=== PATIENT | female | born 1940 | race African-American/Black ===

== ENCOUNTER 2025-08-15 03:13 | Inpatient (IN) | payer BC, MEDICARE ==
[~2025-08-15] VITALS: Ht 162.6 cm; Wt 100.7 kg
[2025-08-15] MEDS: LORAZEPAM 2MG/ML UD SYRINGE IV NR ×2 (03:28→05:03)
[2025-08-15 03:55] LABS: CREATININE 1.7 mg/dL (0.6-1.0); UREA NITROGEN BLOOD 27 mg/dL (9-23)
[2025-08-15 03:56] LABS: TROPONIN I HIGH SENSITIVITY 27 ng/L (3.0-34)
[2025-08-15 03:57] LABS: ASPARTATE AMINOTRANSFERASE 14 IU/L (<34); BILIRUBIN DIRECT 0.2 mg/dL (<=3.0); INR 1.1
[2025-08-15 03:58] LABS: BILIRUBIN TOTAL 0.5 mg/dL (0.1-1.0); PROTEIN TOTAL 7.8 g/dL (6.0-8.3)
[2025-08-15 04:01] LABS: BASOPHILS % 0.9 % (0.0-2.0); EOSINOPHILS % 1.1 % (0.0-5.0); HEMATOCRIT. 50.9 % (36.0-48.0); HEMOGLOBIN. 15.5 g/dL (12.0-16.0); LYMPHOCYTES % 22.3 % (20.0-50.0); MEAN PLATELET VOLUME 11.3 fl (7.4-10.4); MONOCYTES % 8.0 % (2.0-8.0); NEUTROPHILS % 67.7 % (40.0-76.0); PLATELET 170 x1000/uL (130-400); RED BLOOD CELL COUNT 5.74 mill/uL (4.2-5.4); RED CELL DISTRIBUTION WIDTH 16.4 % (11.6-14.6)
[2025-08-15 04:18] LABS: BG BASE EXCESS 0.7 mmol/L (-2.0-3.0); BG CARBOXYHEMOGLOBIN 1.5 % (0.5-1.5); BG DEOXYHEMOGLOBIN 1.6 % (0.0-5.0); BG FLOW(L/min) 4.00 L/min; BG FRACTION INSPIRED OXYGEN 32; BG HCO3 ACT 26.4 mmol/L (21.0-28.0); BG METHEMOGLOBIN 0.2 % (0.5-1.5); BG OXYGEN SATURATION 98.4 % (94.0-98.0); BG OXYHEMOGLOBIN 96.7 % (94.0-98.0); BG PCO2 46.2 mmHg (32.0-45.0); BG PH 7.375 (7.350-7.450); BG PO2 124.7 mmHg (83.0-108.0); BG SAMPLE SITE RIGHT RADIAL; BG TOTAL HEMOGLOBIN 15.8 g/dL (12.0-16.0); BG VENT MODE NASAL CANNULA
[2025-08-15] MEDS: LEVETIRACETAM 1000MG PREMIX 100 ML IV ONE (05:03)
[2025-08-15 08:00] VITALS: BP 109/65; PULSE 72; RESP 16; RESP 23; TEMP 36.2; O2SAT 99
[2025-08-15] MEDS ORDERED: ACETAMINOPHEN 325MG TABLET PO PRN (10:15)
[2025-08-15] MEDS ORDERED: ONDANSETRON HCL 4MG/2ML INJ IV PRN (10:15)
[2025-08-15] MEDS ORDERED: DOCUSATE SODIUM 100MG CAPSULE PO PRN (10:15)
[2025-08-15] MEDS ORDERED: IPRATROPIUM/ALBUTEROL 0.5-3(2.5)MG/3ML NEB HHN PRN (10:15)
[2025-08-15] MEDS ORDERED: DEXTROSE 50% WATER 50ML SYRINGE IV PRN (10:15)
[2025-08-15] MEDS: PANTOPRAZOLE SODIUM 40 MG/VIAL IV SCH (10:30)
[2025-08-15] MEDS: BLOOD SUGAR DIAGNOSTIC STRIP TEST SCH (11:45)
[2025-08-15 12:00] VITALS: BP 112/54; PULSE 68; RESP 16; TEMP 35.9; O2SAT 98
[2025-08-15] MEDS: INSULIN LISPRO 100 UNITS/ML SUBCUT SCH (12:15)
[2025-08-15 16:00] VITALS: BP 137/62; PULSE 73; RESP 16; TEMP 36.2; O2SAT 97
[2025-08-15] MEDS ORDERED: EMPA25TA MT (16:08)
[2025-08-15] MEDS ORDERED: DORZ10DR9 EACHEYE (16:08)
[2025-08-15] MEDS ORDERED: ATOR20TA65 PO (16:08)
[2025-08-15] MEDS ORDERED: FURO-151 PO (16:08)
[2025-08-15] MEDS ORDERED: ALBU18HF2 IH (16:08)
[2025-08-15] MEDS ORDERED: APIX2.5T MT (16:08)
[2025-08-15] MEDS ORDERED: OMEP20CA14 PO (16:08)
[2025-08-15] MEDS ORDERED: LEVO112T7 PO (16:08)
[2025-08-15] MEDS ORDERED: DILT120C11 MT (16:08)
[2025-08-15] MEDS ORDERED: BRIM15DR8 EACHEYE (16:08)
[2025-08-15] MEDS ORDERED: FURO100P5 IV (16:08)
[2025-08-15] MEDS: LEVOTHYROXINE SODIUM 112MCG TABLET PO SCH (16:45)
[2025-08-15] MEDS: DEXAMETHASONE 4MG/ML 1ML VIAL IV SCH (18:00)
[2025-08-15 18:43] VITALS: BP 137/62; PULSE 61; RESP 20; TEMP 36.2512
[2025-08-15] MEDS ORDERED: FLUT1BLS3 INH (18:58)
[2025-08-15] MEDS ORDERED: LATA2.5D7 EACHEYE (18:58)
[2025-08-15 20:00] VITALS: BP 115/83; PULSE 75; RESP 16; TEMP 36; O2SAT 96
[2025-08-15] MEDS ORDERED: LEVETIRACETAM 500MG in NACL 100ML PREMIX IV SCH (21:00)
[2025-08-15] MEDS ORDERED: LEVETIRACETAM 1000MG PREMIX 100 ML IV SCH (21:00)
[2025-08-15] MEDS: LEVETIRACETAM 500MG PREMIX 100 ML IV SCH (23:41)
[2025-08-16] VITALS (9 sets, daily range): BP systolic 108–154; BP diastolic 52–81; PULSE 77–97; RESP 16–20; TEMP 36.3–36.8; O2SAT 96–98
[2025-08-16] MEDS: IPRATROPIUM/ALBUTEROL 0.5-3(2.5)MG/3ML NEB HHN SCH (00:20)
[2025-08-16 06:32] LABS: BASOPHILS % 0.2 % (0.0-2.0); EOSINOPHILS % 0.0 % (0.0-5.0); HEMATOCRIT. 53.6 % (36.0-48.0); HEMOGLOBIN. 16.2 g/dL (12.0-16.0); LYMPHOCYTES % 9.5 % (20.0-50.0); MEAN PLATELET VOLUME 11.4 fl (7.4-10.4); MONOCYTES % 0.7 % (2.0-8.0); NEUTROPHILS % 89.6 % (40.0-76.0); PLATELET 98 x1000/uL (130-400); RED BLOOD CELL COUNT 5.94 mill/uL (4.2-5.4); RED CELL DISTRIBUTION WIDTH 16.2 % (11.6-14.6)
[2025-08-16 06:45] LABS: TRIGLYCERIDE 101.0 mg/dL (0-150)
[2025-08-16 06:46] LABS: LDL CHOLESTEROL 69.0 mg/dL (5-100)
[2025-08-16 06:48] LABS: CREATININE 1.2 mg/dL (0.6-1.0); UREA NITROGEN BLOOD 18.0 mg/dL (9-23)
[2025-08-16 06:53] LABS: T4 FREE 1.51 ng/dL (0.89-1.76)
[2025-08-16] MEDS: DILTIAZEM HCL 30MG TABLET PO SCH (12:00)
[2025-08-16] MEDS: DORZOLAM/TIMOLOL 2%/0.5% OPHTH DROPS 10ML EACHEYE SCH (21:22)
[2025-08-16] MEDS: LATANOPROST 0.005% OPHTH DROPS 2.5ML EACHEYE SCH (21:22)
[2025-08-16] MEDS: ATORVASTATIN CALCIUM 20MG TABLET PO SCH (21:23)
[2025-08-17] VITALS (8 sets, daily range): BP systolic 115–155; BP diastolic 64–93; PULSE 72–87; RESP 16–18; TEMP 35.9–36.6; O2SAT 92–97
[2025-08-17 06:27] LABS: CREATININE 1.1 mg/dL (0.6-1.0)
[2025-08-17 06:28] LABS: UREA NITROGEN BLOOD 18.0 mg/dL (9-23)
[2025-08-17 06:47] LABS: BASOPHILS % 0.1 % (0.0-2.0); EOSINOPHILS % 0.1 % (0.0-5.0); HEMATOCRIT. 52.3 % (36.0-48.0); HEMOGLOBIN. 16.0 g/dL (12.0-16.0); LYMPHOCYTES % 10.1 % (20.0-50.0); MEAN PLATELET VOLUME 12.0 fl (7.4-10.4); MONOCYTES % 5.5 % (2.0-8.0); NEUTROPHILS % 84.2 % (40.0-76.0); PLATELET 129 x1000/uL (130-400); RED BLOOD CELL COUNT 5.85 mill/uL (4.2-5.4); RED CELL DISTRIBUTION WIDTH 16.2 % (11.6-14.6)
[2025-08-17 09:10] LABS: CARCINOEMBRYONIC AG - SEND OUT 2.2 ng/mL (0.0-4.7)
[2025-08-17] MEDS: CLONIDINE 0.1MG TABLET PO PRN (11:53)
[2025-08-17] MEDS ORDERED: HYDROCODONE/ACETAMINOPHEN 5/325MG TABLET PO PRN (22:26)
[2025-08-18] VITALS: BP 127/69; PULSE 70; RESP 16; TEMP 36.2; O2SAT 95
[2025-08-18 04:00] VITALS: BP 121/57; PULSE 70; RESP 16; TEMP 36.4; O2SAT 98
[2025-08-18 07:17] LABS: CREATININE 0.9 mg/dL (0.6-1.0); UREA NITROGEN BLOOD 16 mg/dL (9-23)
[2025-08-18] MEDS ORDERED: CEFTRIAXONE 250 MG in DEXTROSE 5% WATER 50 ML IV SCH (09:00)
[2025-08-18 10:09] VITALS: PULSE 63; RESP 16; O2SAT 97
[2025-08-18 10:12] LABS: CA 27.29 32.8 U/mL (0.0-38.6)
[2025-08-18 12:00] VITALS: BP 147/72; PULSE 61; RESP 18; TEMP 36.3; O2SAT 98
[2025-08-18 16:00] VITALS: BP 142/73; PULSE 67; RESP 18; TEMP 36.2; O2SAT 93
[2025-08-18 20:00] VITALS: BP 177/89; PULSE 70; RESP 17; TEMP 36.4; O2SAT 100
[2025-08-19] VITALS: BP 157/82; PULSE 71; RESP 17; TEMP 36.4; O2SAT 100
[2025-08-19 04:00] VITALS: BP 154/80; PULSE 69; RESP 20; TEMP 35.7; O2SAT 95
[2025-08-19 08:00] VITALS: BP 154/63; PULSE 69; RESP 19; TEMP 35.7; O2SAT 94
[2025-08-19 12:00] VITALS: BP 132/57; PULSE 76; RESP 17; TEMP 35.7; O2SAT 94
[2025-08-19] MEDS ORDERED: CEFEPIME 1GM IN DEXT 5% 50ML IV SCH (14:45)
[2025-08-19 16:00] VITALS: BP 117/29; PULSE 73; RESP 17; TEMP 36.1; O2SAT 95
[2025-08-19] MEDS: CEFEPIME 1GM/50ML 50 ML IV SCH (17:00)
[2025-08-19 20:00] VITALS: BP 144/75; PULSE 80; RESP 19; TEMP 36.3; O2SAT 96
[2025-08-20] VITALS: BP 129/65; PULSE 61; RESP 18; TEMP 36.8; O2SAT 99
[2025-08-20 04:00] VITALS: BP 155/79; PULSE 76; RESP 19; TEMP 36.2; O2SAT 98
[2025-08-20] MEDS ORDERED: ONDANSETRON HCL 4MG/2ML INJ ONE (07:42)
[2025-08-20] MEDS ORDERED: DEXAMETHASONE 4MG/ML 1ML VIAL ONE (07:42)
[2025-08-20] MEDS ORDERED: LIDOCAINE HCL 1% 20ML VIAL ONE (07:42)
[2025-08-20] MEDS ORDERED: PROPOFOL 200MG/20ML VIAL IV ONE (07:43)
[2025-08-20] MEDS ORDERED: FENTANYL CITRATE/PF 50MCG/ML 2ML VIAL ONE (07:43)
[2025-08-20] MEDS ORDERED: ACETAMINOPHEN 1000MG/100ML 100 ML IV ONE (07:46)
[2025-08-20] MEDS ORDERED: FAMOTIDINE 20MG/2ML VIAL IV ONE (07:46)
[2025-08-20] MEDS ORDERED: CEFAZOLIN SODIUM 1000MG/VIAL ONE (07:56)
[2025-08-20] MEDS ORDERED: PHENYLEPHRINE HCL 10MG/ML 1ML IV ONE (08:09)
[2025-08-20] MEDS ORDERED: IOHEXOL-300 100 ML BOTTLE ONE (08:42)
[2025-08-20] MEDS ORDERED: HYDROMORPHONE HCL/PF 1MG/ML INJ IV PRN (08:45)
[2025-08-20] MEDS ORDERED: LABETALOL 5MG/ML 4ML INJ IV PRN (08:45)
[2025-08-20] MEDS ORDERED: FENTANYL CITRATE/PF 50MCG/ML 2ML VIAL IV PRN (08:45)
[2025-08-20] MEDS ORDERED: ONDANSETRON HCL 4MG/2ML INJ IV PRN (08:45)
[2025-08-20] MEDS ORDERED: ALBUTEROL (0.5%) 2.5MG/0.5ML NEB HHN NR (08:45)
[2025-08-20 09:38] VITALS: PULSE 103; RESP 22; O2SAT 93
[2025-08-20] MEDS: HYDRALAZINE 20MG/ML VIAL IV PRN (10:06)
[2025-08-20 12:00] VITALS: BP 142/75; PULSE 64; RESP 19; TEMP 36.1; O2SAT 99
[2025-08-20 16:00] VITALS: BP 154/90; PULSE 92; RESP 18; TEMP 36.1; O2SAT 98
[2025-08-20 20:00] VITALS: BP_SYST 129; BP_DIAS 55; BP_DIAS 58; PULSE 95; RESP 19; TEMP 36.4; O2SAT 98
[2025-08-21] VITALS: BP 129/58; PULSE 95; RESP 19; TEMP 36.4; O2SAT 98
[2025-08-21 04:00] VITALS: PULSE 87; RESP 18; TEMP 36.4; O2SAT 97
[2025-08-21 06:24] LABS: HEMATOCRIT. 55.3 % (36.0-48.0); HEMOGLOBIN. 17.1 g/dL (12.0-16.0); MEAN PLATELET VOLUME 10.9 fl (7.4-10.4); PLATELET 99 x1000/uL (130-400); RED BLOOD CELL COUNT 6.29 mill/uL (4.2-5.4); RED CELL DISTRIBUTION WIDTH 16.0 % (11.6-14.6)
[2025-08-21 06:43] LABS: CREATININE 1.2 mg/dL (0.6-1.0); UREA NITROGEN BLOOD 30.0 mg/dL (9-23)
[2025-08-21 08:00] VITALS: BP 107/62; PULSE 79; RESP 18; TEMP 35.6; O2SAT 97
[2025-08-21 12:00] VITALS: BP 104/77; PULSE 66; RESP 17; TEMP 36.1; O2SAT 97
[2025-08-21] MEDS: SODIUM CHLORIDE 0.9% (SEPSIS BOLUS) IV ONE (12:33)
[2025-08-21 16:00] VITALS: BP 124/73; PULSE 107; RESP 20; TEMP 36.3; O2SAT 98
[2025-08-21 20:00] VITALS: BP 141/55; PULSE 105; RESP 19; TEMP 36.9; O2SAT 99
[2025-08-21 20:52] LABS: LYMPHOCYTES % MANUAL 7.0 % (20.0-60.0); MONOCYTES % MANUAL 5.0 % (2.0-8.0); NEUTROPHILS % MANUAL 88.0 % (45.0-75.0); PLATELET ESTIMATE NORMAL
[2025-08-22] VITALS: PULSE 100; RESP 18; TEMP 36.9; O2SAT 100
[2025-08-22 04:00] VITALS: BP 126/91; PULSE 87; RESP 18; TEMP 36.4; O2SAT 97
[2025-08-22 07:12] LABS: CREATININE 1.3 mg/dL (0.6-1.0); UREA NITROGEN BLOOD 30.0 mg/dL (9-23)
[2025-08-22 08:00] VITALS: BP 146/84; PULSE 65; RESP 19; TEMP 36.4; O2SAT 98
[2025-08-22] MEDS: SODIUM ZIRCONIUM CYCLOSILICATE 10GM/PACKET PO NR (08:30)
[2025-08-22] MEDS ORDERED: ALBUTEROL (0.5%) 2.5MG/0.5ML NEB HHN NR (08:30)
[2025-08-22] MEDS ORDERED: SODIUM POLYSTYRENE SULFONATE 15 G/60 ML BOT PR NR (10:45)
[2025-08-22 11:11] LABS: BASOPHILS % 0.1 % (0.0-2.0); EOSINOPHILS % 0.0 % (0.0-5.0); HEMATOCRIT. 58.0 % (36.0-48.0); HEMOGLOBIN. 17.7 g/dL (12.0-16.0); LYMPHOCYTES % 9.6 % (20.0-50.0); MEAN PLATELET VOLUME 11.2 fl (7.4-10.4); MONOCYTES % 4.2 % (2.0-8.0); NEUTROPHILS % 86.1 % (40.0-76.0); PLATELET 67 x1000/uL (130-400); RED BLOOD CELL COUNT 6.52 mill/uL (4.2-5.4); RED CELL DISTRIBUTION WIDTH 16.3 % (11.6-14.6)
[2025-08-22 12:00] VITALS: BP 155/68; PULSE 87; RESP 18; TEMP 36.6; O2SAT 100
[2025-08-22 16:00] VITALS: BP 147/63; PULSE 88; RESP 19; TEMP 36; O2SAT 98
[2025-08-22] MEDS: SODIUM CHLORIDE 0.9% 1,000 ML IV SCH (16:27)
[2025-08-22 20:00] VITALS: BP 154/78; PULSE 82; RESP 16; TEMP 36.3; O2SAT 100
[2025-08-23] VITALS (7 sets, daily range): BP systolic 135–199; BP diastolic 66–96; PULSE 63–86; RESP 17–20; TEMP 35.9–37.2; O2SAT 95–100
[2025-08-23] MEDS ORDERED: HYDRALAZINE 20MG/ML VIAL IV PRN (19:45)
[2025-08-23] MEDS: HYDRALAZINE 10 MG in SODIUM CHLORIDE 0.9% 49.5 ML IV PRN (20:30)
[2025-08-23] MEDS: DEXAMETHASONE 4MG/ML 1ML VIAL IV SCH (21:53)
[2025-08-24] VITALS: BP 144/69; PULSE 80; RESP 20; TEMP 36.5; O2SAT 98
[2025-08-24 04:00] VITALS: BP 141/66; PULSE 87; RESP 16; TEMP 37; O2SAT 99
[2025-08-24 08:00] VITALS: BP 154/82; PULSE 83; RESP 19; TEMP 36.2; O2SAT 100
[2025-08-24 09:59] LABS: BASOPHILS % 0.1 % (0.0-2.0); EOSINOPHILS % 0.0 % (0.0-5.0); HEMATOCRIT. 53.6 % (36.0-48.0); HEMOGLOBIN. 16.5 g/dL (12.0-16.0); LYMPHOCYTES % 12.0 % (20.0-50.0); MEAN PLATELET VOLUME 11.3 fl (7.4-10.4); MONOCYTES % 7.6 % (2.0-8.0); NEUTROPHILS % 80.3 % (40.0-76.0); PLATELET 64 x1000/uL (130-400); RED BLOOD CELL COUNT 6.08 mill/uL (4.2-5.4); RED CELL DISTRIBUTION WIDTH 15.8 % (11.6-14.6)
[2025-08-24 10:18] LABS: CREATININE 0.9 mg/dL (0.6-1.0); UREA NITROGEN BLOOD 26 mg/dL (9-23)
[2025-08-24 12:00] VITALS: BP 184/90; PULSE 86; RESP 18; TEMP 36.2; O2SAT 100
[2025-08-24 16:00] VITALS: BP 174/80; PULSE 86; RESP 18; TEMP 36.2; O2SAT 100
[2025-08-24 20:00] VITALS: BP 179/69; PULSE 86; RESP 18; TEMP 36.4; O2SAT 95
[2025-08-25] VITALS (8 sets, daily range): BP systolic 120–182; BP diastolic 64–96; PULSE 64–87; RESP 17–18; TEMP 35.5–36.8; O2SAT 94–100
[2025-08-25 09:47] LABS: BASOPHILS % 0.1 % (0.0-2.0); EOSINOPHILS % 0.1 % (0.0-5.0); HEMATOCRIT. 50.1 % (36.0-48.0); HEMOGLOBIN. 15.8 g/dL (12.0-16.0); LYMPHOCYTES % 10.1 % (20.0-50.0); MEAN PLATELET VOLUME 11.8 fl (7.4-10.4); MONOCYTES % 7.3 % (2.0-8.0); NEUTROPHILS % 82.4 % (40.0-76.0); PLATELET 67 x1000/uL (130-400); RED BLOOD CELL COUNT 5.69 mill/uL (4.2-5.4); RED CELL DISTRIBUTION WIDTH 16.1 % (11.6-14.6)
[2025-08-25 10:14] LABS: CREATININE 0.8 mg/dL (0.6-1.0); UREA NITROGEN BLOOD 28 mg/dL (9-23)
[2025-08-25] MEDS ORDERED: HYDRALAZINE 10 MG in SODIUM CHLORIDE 0.9% 49.5 ML IV PRN (15:00)
[2025-08-25] MEDS ORDERED: HYDRALAZINE 20MG/ML VIAL IV PRN (22:00)
[2025-08-25] MEDS: DEXT 5%/0.45% NACL 1000ML 1,000 ML IV SCH (22:20)
[2025-08-25] MEDS: HYDRALAZINE 20MG/ML VIAL IV SCH (22:20)
[2025-08-26] VITALS: BP 144/87; PULSE 86; RESP 18; TEMP 36.9; O2SAT 100
[2025-08-26 04:00] VITALS: BP 138/87; PULSE 84; RESP 18; TEMP 37; O2SAT 98
[2025-08-26 08:00] VITALS: BP 140/78; PULSE 78; RESP 20; TEMP 36; O2SAT 100
[2025-08-26 12:00] VITALS: BP 110/66; PULSE 76; RESP 20; TEMP 36.1; O2SAT 99
[2025-08-26] MEDS: CLONIDINE 0.2MG TABLET PO NR (12:56)
[2025-08-26 16:00] VITALS: BP 150/88; PULSE 66; RESP 18; TEMP 36.3; O2SAT 98
[2025-08-26] MEDS: BISACODYL 10MG SUPP PR NR (17:24)
[2025-08-26 20:00] VITALS: BP 143/80; PULSE 67; RESP 18; TEMP 36.1; O2SAT 100
[2025-08-27] VITALS: BP 146/81; PULSE 75; RESP 18; TEMP 36.6; O2SAT 98
[2025-08-27 04:00] VITALS: BP 117/60; PULSE 65; RESP 18; TEMP 36; O2SAT 99
[2025-08-27 08:00] VITALS: BP 154/79; PULSE 74; RESP 20; TEMP 36.6; O2SAT 95
[2025-08-27 12:00] VITALS: BP 148/69; PULSE 64; RESP 20; TEMP 36.1; O2SAT 98
[2025-08-27 16:00] VITALS: BP 159/78; PULSE 72; RESP 18; TEMP 36.1; O2SAT 95
[2025-08-27 20:00] VITALS: BP 152/76; PULSE 75; RESP 20; TEMP 36.4; O2SAT 95
[2025-08-28] VITALS: BP 154/70; PULSE 74; RESP 20; TEMP 36.1; O2SAT 94
[2025-08-28 03:53] VITALS: BP 150/71; PULSE 70; RESP 20; TEMP 36.2; O2SAT 93
[2025-08-28 08:00] VITALS: BP 139/62; PULSE 68; RESP 18; TEMP 35.7; O2SAT 93
[2025-08-28 12:00] VITALS: BP 140/74; PULSE 97; RESP 16; TEMP 36.3; O2SAT 98
[2025-08-28 16:00] VITALS: BP 138/64; PULSE 98; RESP 18; TEMP 36.8; O2SAT 99
[2025-08-28 20:00] VITALS: BP 120/90; PULSE 89; RESP 19; TEMP 36.2; O2SAT 99
[2025-08-28] MEDS: PANTOPRAZOLE SODIUM 40 MG/VIAL IV SCH (21:40)
[2025-08-29] VITALS: BP 107/54; PULSE 86; RESP 18; TEMP 35.6; O2SAT 98
[2025-08-29 04:00] VITALS: BP 113/70; PULSE 94; RESP 20; TEMP 35.7; O2SAT 98
[2025-08-29] MEDS: DEXAMETHASONE 4MG/ML 1ML VIAL IV SCH (09:42)
[2025-08-29 11:56] VITALS: BP 127/59; PULSE 78; RESP 18; TEMP 35.7; O2SAT 100
[2025-08-29] MEDS: SODIUM CHLORIDE 0.9% 1,000 ML IV SCH (16:06)
[2025-08-29 16:11] VITALS: BP 112/60; PULSE 88; RESP 19; TEMP 35.9; O2SAT 97
[2025-08-29 20:00] VITALS: BP 146/53; PULSE 109; RESP 20; TEMP 36.6; O2SAT 95
[2025-08-29] MEDS: DEXT 5%/0.9% NACL 1,000 ML IV SCH (22:09)
[2025-08-30] VITALS: BP 138/61; PULSE 99; RESP 18; TEMP 36.7; O2SAT 96
[2025-08-30 04:00] VITALS: BP 131/79; PULSE 70; RESP 18; TEMP 35.9; O2SAT 97
[2025-08-30 08:23] VITALS: BP 125/53; PULSE 62; RESP 19; TEMP 35.9; O2SAT 96
[2025-08-30 12:00] VITALS: BP 104/51; PULSE 56; RESP 18; TEMP 35.3; O2SAT 96
[2025-08-30 12:03] LABS: BASOPHILS % 0.2 % (0.0-2.0); EOSINOPHILS % 0.4 % (0.0-5.0); HEMATOCRIT. 50.4 % (36.0-48.0); HEMOGLOBIN. 15.2 g/dL (12.0-16.0); LYMPHOCYTES % 9.3 % (20.0-50.0); MEAN PLATELET VOLUME 12.3 fl (7.4-10.4); MONOCYTES % 4.0 % (2.0-8.0); NEUTROPHILS % 86.1 % (40.0-76.0); PLATELET 66 x1000/uL (130-400); RED BLOOD CELL COUNT 5.61 mill/uL (4.2-5.4); RED CELL DISTRIBUTION WIDTH 16.1 % (11.6-14.6)
[2025-08-30 12:30] LABS: CREATININE 1.0 mg/dL (0.6-1.0)
[2025-08-30 12:34] LABS: UREA NITROGEN BLOOD 27 mg/dL (9-23)
[2025-08-30 16:10] VITALS: BP 116/57; PULSE 67; RESP 20; TEMP 35.8; O2SAT 97
[2025-08-30] MEDS ORDERED: CEFAZOLIN 1000MG PREMIX 50 ML IV ONE (19:00)
[2025-08-30 20:00] VITALS: BP 128/68; PULSE 67; RESP 18; TEMP 36.4; O2SAT 96
[2025-08-31] VITALS: BP 138/69; PULSE 68; RESP 20; TEMP 36.1; O2SAT 96
[2025-08-31 04:00] VITALS: BP 135/66; PULSE 65; RESP 20; TEMP 36.2; O2SAT 97
[2025-08-31 07:52] VITALS: BP 134/53; PULSE 66; RESP 19; TEMP 35.3; O2SAT 93
[2025-08-31 11:46] VITALS: BP 111/38; PULSE 68; RESP 20; TEMP 35.1; O2SAT 92
[2025-08-31] MEDS ORDERED: CEFEPIME 1GM/50ML 50 ML IV SCH (14:00)
[2025-08-31 15:52] VITALS: BP 123/67; PULSE 67; RESP 18; TEMP 35.9; O2SAT 92
[2025-08-31] MEDS ORDERED: PROPOFOL 200MG/20ML VIAL IV ONE (16:54)
[2025-08-31] MEDS ORDERED: ONDANSETRON HCL 4MG/2ML INJ IV PRN (17:15)
[2025-08-31] MEDS ORDERED: HYDROMORPHONE HCL/PF 1MG/ML INJ IV PRN (17:15)
[2025-08-31 20:20] VITALS: BP 154/70; PULSE 64; RESP 20; TEMP 35.7; O2SAT 97
[2025-09-01] VITALS (7 sets, daily range): BP systolic 125–151; BP diastolic 59–89; PULSE 59–90; RESP 18–20; TEMP 36–37.1; O2SAT 95–100
[2025-09-01] MEDS: METOCLOPRAMIDE HCL 10MG/2ML VIAL IV SCH (05:10)
[2025-09-01 09:13] LABS: CREATININE 0.8 mg/dL (0.6-1.0)
[2025-09-01 09:14] LABS: UREA NITROGEN BLOOD 17 mg/dL (9-23)
[2025-09-01 11:16] LABS: BASOPHILS % 0.1 % (0.0-2.0); EOSINOPHILS % 0.5 % (0.0-5.0); HEMATOCRIT. 46.6 % (36.0-48.0); HEMOGLOBIN. 14.3 g/dL (12.0-16.0); LYMPHOCYTES % 7.2 % (20.0-50.0); MEAN PLATELET VOLUME 12.3 fl (7.4-10.4); MONOCYTES % 3.3 % (2.0-8.0); NEUTROPHILS % 88.9 % (40.0-76.0); PLATELET 63 x1000/uL (130-400); RED BLOOD CELL COUNT 5.21 mill/uL (4.2-5.4); RED CELL DISTRIBUTION WIDTH 15.9 % (11.6-14.6)
[2025-09-01] MEDS: VANCOMYCIN 1G PREMIX 200 ML IV NR (15:06)
[2025-09-01] MEDS: IPRATROPIUM/ALBUTEROL 0.5-3(2.5)MG/3ML NEB HHN PRN (21:05)
[2025-09-02] VITALS: BP 117/49; PULSE 59; RESP 18; TEMP 37.1; O2SAT 98
[2025-09-02 04:00] VITALS: BP 110/45; PULSE 64; RESP 18; TEMP 36.6; O2SAT 98
[2025-09-02 08:17] VITALS: BP 126/59; PULSE 67; RESP 18; TEMP 36.6; O2SAT 99
[2025-09-02 12:00] VITALS: BP 138/55; PULSE 67; RESP 16; TEMP 36.1; O2SAT 92
[2025-09-02 13:09] LABS: HEMATOCRIT. 47.4 % (36.0-48.0); HEMOGLOBIN. 14.3 g/dL (12.0-16.0); RED BLOOD CELL COUNT 5.19 mill/uL (4.2-5.4); RED CELL DISTRIBUTION WIDTH 16.2 % (11.6-14.6)
[2025-09-02 14:11] LABS: PLATELET 62 x1000/uL (130-400)
[2025-09-02 14:13] LABS: LYMPHOCYTES % MANUAL 5.0 % (20.0-60.0); MONOCYTES % MANUAL 2.0 % (2.0-8.0); NEUTROPHILS % MANUAL 93.0 % (45.0-75.0); PLATELET ESTIMATE DECREASED
[2025-09-02 16:00] VITALS: BP 133/64; PULSE 69; RESP 16; TEMP 36.2; O2SAT 94
[2025-09-02 20:00] VITALS: BP 127/58; PULSE 71; RESP 18; TEMP 36.3; O2SAT 100
[2025-09-02] MEDS: ACETAMINOPHEN 325MG TABLET PO PRN (20:55)
[2025-09-03] VITALS: BP 125/68; PULSE 69; RESP 19; TEMP 36.2; O2SAT 94
[2025-09-03 04:00] VITALS: BP 157/62; PULSE 64; RESP 18; TEMP 36.1; O2SAT 96
[2025-09-03 08:35] VITALS: BP 134/48; PULSE 65; RESP 19; TEMP 35.4; O2SAT 100
[2025-09-03 12:13] VITALS: BP 135/78; PULSE 68; RESP 19; TEMP 36.2; O2SAT 100
[2025-09-03] MEDS: HYDRALAZINE HCL 10MG TABLET PO SCH (14:57)
[2025-09-03 16:11] VITALS: BP 113/65; PULSE 72; RESP 20; TEMP 35.8; O2SAT 95
[2025-09-03 20:00] VITALS: BP 167/80; PULSE 98; RESP 20; TEMP 36.6; O2SAT 100
[2025-09-03] MEDS: LEVETIRACETAM 500MG TABLET PO SCH (21:13)
[2025-09-04] VITALS (8 sets, daily range): BP systolic 126–170; BP diastolic 61–98; PULSE 70–80; RESP 20–21; TEMP 35.2–36.8; O2SAT 94–99
[2025-09-04] MEDS: PANTOPRAZOLE 40MG DR TABLET PO SCH (08:56)
[2025-09-04] MEDS: DEXAMETHASONE 4MG TABLET PO SCH (08:56)
[2025-09-04] MEDS ORDERED: KEPP500 PO (09:38)
[2025-09-05] VITALS: BP 136/88; PULSE 79; RESP 20; RESP 21; TEMP 36.8; O2SAT 98
[2025-09-05 04:00] VITALS: BP 151/66; PULSE 74; RESP 19; TEMP 36.7; O2SAT 95
[2025-09-05 08:00] VITALS: BP 148/88; PULSE 86; RESP 20; TEMP 36.1; O2SAT 95
[2025-09-05 14:01] LABS: BG BASE EXCESS -2.4 mmol/L (-2.0-3.0); BG CARBOXYHEMOGLOBIN 1.3 % (0.5-1.5); BG DEOXYHEMOGLOBIN 2.0 % (0.0-5.0); BG FLOW(L/min) 2.00 L/min; BG FRACTION INSPIRED OXYGEN 28; BG HCO3 ACT 23.4 mmol/L (21.0-28.0); BG METHEMOGLOBIN 0.2 % (0.5-1.5); BG OXYGEN SATURATION 98.0 % (94.0-98.0); BG OXYHEMOGLOBIN 96.5 % (94.0-98.0); BG PCO2 43.9 mmHg (32.0-45.0); BG PH 7.344 (7.350-7.450); BG PO2 102.2 mmHg (83.0-108.0); BG SAMPLE SITE RIGHT RADIAL; BG TOTAL HEMOGLOBIN 14.7 g/dL (12.0-16.0); BG VENT MODE NASAL CANNULA
[2025-09-05 20:56] VITALS: BP 167/86; PULSE 70; RESP 19; TEMP 36.7; O2SAT 96
[2025-09-06] VITALS (7 sets, daily range): BP systolic 132–201; BP diastolic 54–97; PULSE 55–81; RESP 15–20; TEMP 36–36.6; O2SAT 97–100
[2025-09-06 07:58] LABS: CREATININE 0.7 mg/dL (0.6-1.0)
[2025-09-06 07:59] LABS: UREA NITROGEN BLOOD 18 mg/dL (9-23)
[2025-09-06] MEDS ORDERED: HYDRALAZINE 10 MG in SODIUM CHLORIDE 0.9% 49.5 ML IV PRN (15:30)
[2025-09-06] MEDS: HYDRALAZINE HCL 50MG TABLET GT PRN (16:16)
[2025-09-06] MEDS ORDERED: HYDRALAZINE 20MG/ML VIAL IV PRN (20:30)
[2025-09-06] MEDS ORDERED: HYDRALAZINE HCL 50MG TABLET PO SCH (21:00)
[2025-09-07] VITALS (7 sets, daily range): BP systolic 126–160; BP diastolic 54–88; PULSE 67–90; RESP 18–20; TEMP 36.1–37.2; O2SAT 95–98
[2025-09-07] MEDS: HYDRALAZINE HCL 50MG TABLET PO SCH (07:00)
[2025-09-07 07:28] LABS: BASOPHILS % 0.2 % (0.0-2.0); EOSINOPHILS % 1.7 % (0.0-5.0); HEMATOCRIT. 40.9 % (36.0-48.0); HEMOGLOBIN. 12.9 g/dL (12.0-16.0); LYMPHOCYTES % 13.3 % (20.0-50.0); MONOCYTES % 4.5 % (2.0-8.0); NEUTROPHILS % 80.3 % (40.0-76.0); RED BLOOD CELL COUNT 4.67 mill/uL (4.2-5.4); RED CELL DISTRIBUTION WIDTH 16.3 % (11.6-14.6)
[2025-09-07 08:34] LABS: ADD RBC MORPHOLOGY YES; MEAN PLATELET VOLUME 11.0 fl (7.4-10.4); PLATELET ESTIMATE MARKEDLY DECREASED
[2025-09-07 12:22] LABS: PLATELET 40 x1000/uL (130-400)
== END 2025-09-07 18:00 | DRG 54 ==
LOC: ER 03:13 → 5WST 05:15 → EDBEDREQTM 05:20 → EDBEDREQ 05:20 → ENRESERV 05:24 → 6EST 08-18 18:19 → 7WST 08-25 16:26 → 8EST 09-06 10:52 → 7WST 09-06 20:12
PROVIDERS: ADMIT Internal Medicine; ATTEND Internal Medicine
PROC: 0TJB8ZZ Inspection of Bladder, Via Natural or Artificial Opening Endoscopic (ICD-10-PCS; 2025-08-20)
PROC: 05HY33Z Insertion of Infusion Device into Upper Vein, Percutaneous Approach (ICD-10-PCS; 2025-08-26)
PROC: B54MZZA Ultrasonography of Right Upper Extremity Veins, Guidance (ICD-10-PCS; 2025-08-26)
PROC: 0DB78ZX Excision of Stomach, Pylorus, Via Natural or Artificial Opening Endoscopic, Diagnostic (ICD-10-PCS; principal; 2025-08-31)
PROC: 0DH63UZ Insertion of Feeding Device into Stomach, Percutaneous Approach (ICD-10-PCS; 2025-08-31)
DX: C79.31 Secondary malignant neoplasm of brain (principal); N17.0 Acute kidney failure with tubular necrosis; G93.40 Encephalopathy, unspecified; I82.611 Acute embolism and thrombosis of superficial veins of right upper extremity; C34.12 Malignant neoplasm of upper lobe, left bronchus or lung; R13.12 Dysphagia, oropharyngeal phase; J96.11 Chronic respiratory failure with hypoxia; N13.1 Hydronephrosis with ureteral stricture, not elsewhere classified; N13.2 Hydronephrosis with renal and ureteral calculous obstruction; D69.6 Thrombocytopenia, unspecified; C50.919 Malignant neoplasm of unspecified site of unspecified female breast; I12.9 Hypertensive chronic kidney disease with stage 1 through stage 4 chronic kidney disease, or unspecified chronic kidney disease; J44.9 Chronic obstructive pulmonary disease, unspecified; E11.22 Type 2 diabetes mellitus with diabetic chronic kidney disease; E03.9 Hypothyroidism, unspecified; F03.90 Unspecified dementia, unspecified severity, without behavioral disturbance, psychotic disturbance, mood disturbance, and anxiety; N18.9 Chronic kidney disease, unspecified; R56.9 Unspecified convulsions; I48.0 Paroxysmal atrial fibrillation; G93.89 Other specified disorders of brain; J43.2 Centrilobular emphysema; Z99.81 Dependence on supplemental oxygen; E83.52 Hypercalcemia; E83.42 Hypomagnesemia; Z85.118 Personal history of other malignant neoplasm of bronchus and lung; E87.5 Hyperkalemia; D72.829 Elevated white blood cell count, unspecified; E78.5 Hyperlipidemia, unspecified; I49.1 Atrial premature depolarization; K29.50 Unspecified chronic gastritis without bleeding; K44.9 Diaphragmatic hernia without obstruction or gangrene; M25.461 Effusion, right knee; S89.81XA Other specified injuries of right lower leg, initial encounter; R60.9 Edema, unspecified; W18.39XA Other fall on same level, initial encounter; Z53.9 Procedure and treatment not carried out, unspecified reason; M70.41 Prepatellar bursitis, right knee; Z51.5 Encounter for palliative care; Z74.01 Bed confinement status; Z79.84 Long term (current) use of oral hypoglycemic drugs; Z85.3 Personal history of malignant neoplasm of breast; Z88.0 Allergy status to penicillin; Z90.12 Acquired absence of left breast and nipple; Z91.041 Radiographic dye allergy status; Z92.21 Personal history of antineoplastic chemotherapy; Z92.3 Personal history of irradiation; Z93.1 Gastrostomy status; Y93.89 Activity, other specified; Y92.89 Other specified places as the place of occurrence of the external cause; Y99.8 Other external cause status; Z87.891 Personal history of nicotine dependence
CPT/HCPCS: 36415; 36573; 36600; 70551; 71045; 71250; 73562; 74021; 74176; 76000; 76705; 76770; 80048; 80061; 80076; 80320; 82375; 82378; 82805; 82962; 83036; 83735; 83880; 83970; 84132; 84145; 84439; 84443; 84481; 84484; 85025; 86300; 88305; 92610; 93005; 93306; 93971; 94070; 94640; 94664; 94760; 97161; 98960; 99285; A4606; A4615; C1725; C1769; J0360; J0690; J0692; J1100; J1308; J1815; J1953; J2003; J2060; J2371; J2405; J2470; J2704; J2765; J3010; J3373; J7030; J7042; J8540; Q9967; G0480; J0131